=== PATIENT | male | born 1995 | race Caucasian/White ===

== ENCOUNTER 2019-06-06 17:34 | Emergency (ER) | payer OTHER ==
[~2019-06-06] VITALS: Ht 182.9 cm; Wt 96.7 kg
[2019-06-06 17:50] VITALS: BP 129/66
[2019-06-06] MEDS ORDERED: ACETAMINOPHEN 500 MG TABLET PO ONE (18:30)
[2019-06-06] MEDS ORDERED: DEXAMETHASONE 4 MG TABLET ONE (18:30)
[2019-06-06] MEDS ORDERED: DEXAMETHASONE 4 MG TABLET PO ONE (18:30)
[2019-06-06] MEDS ORDERED: ACETAMINOPHEN 500 MG TABLET ONE (18:30)
[2019-06-06 18:34] LABS: RAPID INFLUENZA A Negative (Negative); RAPID INFLUENZA B POSITIVE (Negative)
== END 2019-06-06 19:04 | disposition home or self-care (01) ==
LOC: ED 18:45
DX: J10.1 Influenza due to other identified influenza virus with other respiratory manifestations (principal)
CPT/HCPCS: 71046; 87400; 99284